=== PATIENT | female | born 1950 | race Caucasian/White ===

== ENCOUNTER 2017-07-27 15:59 | Emergency (ER) | payer OTHER ==
[~2017-07-27] VITALS: Ht 160 cm; Wt 83.0 kg
[2017-07-27 16:13] VITALS: BP 178/72
== END 2017-07-27 18:08 | disposition left against medical advice (07) ==
LOC: ER 16:32
DX: E11.622 Type 2 diabetes mellitus with other skin ulcer (principal); Z53.21 Procedure and treatment not carried out due to patient leaving prior to being seen by health care provider

== ENCOUNTER 2017-07-27 20:26 | Emergency (ER) | payer OTHER ==
[~2017-07-27] VITALS: Ht 157.5 cm; Wt 69.0 kg
[2017-07-27] MEDS ORDERED: ONDANSETRON HCL 4MG/2ML VIAL IV STA (22:59)
[2017-07-27] MEDS ORDERED: MORPHINE SULFATE 4 MG/ML CPJ (NOT FOR IM USE) IV STA (22:59)
[2017-07-27] MEDS ORDERED: SODIUM CHLORIDE 0.9% 1,000 ML IV ONE (22:59)
[2017-07-27] MEDS ORDERED: CLINDAMYCIN 600 MG in DEXTROSE 5% WATER 50 ML IV ONE (23:00)
[2017-07-27 23:40] LABS: BASOPHILS % 0.3 % (0.0-2.0); EOSINOPHILS % 1.3 % (0.0-5.0); HEMATOCRIT. 25.8 % (36.0-48.0); HEMOGLOBIN. 9.1 g/dL (12.0-16.0); LYMPHOCYTES % 31.9 % (20.0-50.0); MEAN CORPUSCULAR VOLUME 99.1 fL (81.0-99.0); MEAN PLATELET VOLUME 7.3 fl (7.4-10.4); NEUTROPHILS % 63.5 % (40.0-76.0); PLATELET 139 x1000/uL (130-400); RED CELL DISTRIBUTION WIDTH 18.2 % (11.6-14.6)
[2017-07-27 23:51] LABS: CHLORIDE 105 mEq/L (98-107)
[2017-07-28 02:30] VITALS: BP 153/71
== END 2017-07-28 02:31 | disposition home or self-care (01) ==
LOC: ER 20:32
DX: B95.62 Methicillin resistant Staphylococcus aureus infection as the cause of diseases classified elsewhere (principal); E11.9 Type 2 diabetes mellitus without complications; E78.00 Pure hypercholesterolemia, unspecified; I10 Essential (primary) hypertension; J44.9 Chronic obstructive pulmonary disease, unspecified; M06.9 Rheumatoid arthritis, unspecified; Z88.2 Allergy status to sulfonamides; Z90.710 Acquired absence of both cervix and uterus; Z91.040 Latex allergy status
CPT/HCPCS: 36415; 80048; 85025; 96365; 96375; 99284; J2270; J2405; J3490; J7030; J7060